=== PATIENT | male | born 1960 | race Caucasian/White ===

== ENCOUNTER 2019-07-16 10:25 | Observation (INO) ==
[2019-07-16] MEDS ORDERED: Isovue-370 500 ML BOTTLE IVP ONE (10:39)
[2019-07-16 11:10] LABS: Basophils % 0.4 %; Eosinophils # 0.4 K/mcL (0.0-0.6); Eosinophils % 3.6 %; Hematocrit 42.2 % (37.5-50.1); Hemoglobin 13.8 g/dL (12.9-16.9); Immature Granulocytes % 0.5 % (0-4); Lymphocytes # 1.8 K/mcL (0.6-4.6); Lymphocytes % 17.8 %; Mean Corpuscular HGB Conc 32.7 g/dL (31.6-35.5); Mean Corpuscular Hemoglobin 31.5 pg (28.0-33.3); Mean Corpuscular Volume 96.3 fL (83.0-100.0); Mean Platelet Volume 9.4 fL (9.4-12.4); Monocytes # 1.1 K/mcL (0.0-1.3); Monocytes % 10.5 %; Neutrophils # 6.8 K/mcL (1.6-8.9); Platelet Count 211 K/mcL (140-400); Red Blood Count 4.38 M/mcL (4.19-5.50); Segmented Neutrophils % 67.2 %; White Blood Count 10.1 K/mcL (4.3-11.1)
[2019-07-16] MEDS ORDERED: Tdap (Boostrix) Vaccine 0.5 ML SYRINGE IM ONE (11:24)
[2019-07-16 12:08] LABS: BUN/Creatinine Ratio 13 (6-26); Blood Urea Nitrogen 11 mg/dL (8-23); Calcium 9.2 mg/dL (8.6-10.3); Carbon Dioxide 23 mEq/L (23-29); Chloride 108 mEq/L (98-107); Glucose 120 mg/dL (70-105); Osmolality,Calculated 285 (280-300); Potassium 3.6 mEq/L (3.5-5.1); Sodium 137 mEq/L (136-145); eGFR For African Americans > 60 (> 60); eGFR For Non-African Americans > 60 (> 60)
[2019-07-16] MEDS ORDERED: Ondansetron 4 MG/2 ML VIAL IVP PRN (13:14)
[2019-07-16] MEDS ORDERED: Naloxone 0.4 MG/ML INJ IVP PRN (13:14)
[2019-07-16] MEDS ORDERED: Ketorolac 15 MG/ML VIAL IVP ONE (13:19)
[2019-07-16 14:01] LABS: C-Reactive Protein 7 mg/L (Less than 10)
[2019-07-16] MEDS: *HR* Heparin 5,000 UNIT/ML VIAL SQ SCH ×2 (14:50→21:15)
[2019-07-16] MEDS: Clindamycin 600 MG/50 ML 600 MG/50 ML IV.SOLN IVPB SCH ×2 (16:49→23:16)
[2019-07-16] MEDS: *HR* HYDROcodone/Acet 5/325 mg TABLET PO PRN (18:43)
[2019-07-17 03:58] LABS: Basophils % 0.6 %; Eosinophils # 0.4 K/mcL (0.0-0.6); Eosinophils % 6.2 %; Hematocrit 43.9 % (37.5-50.1); Hemoglobin 14.1 g/dL (12.9-16.9); Immature Granulocytes % 0.3 % (0-4); Lymphocytes # 2.2 K/mcL (0.6-4.6); Lymphocytes % 32.8 %; Mean Corpuscular HGB Conc 32.1 g/dL (31.6-35.5); Mean Corpuscular Volume 96.5 fL (83.0-100.0); Mean Platelet Volume 9.8 fL (9.4-12.4); Monocytes # 0.8 K/mcL (0.0-1.3); Monocytes % 11.6 %; Neutrophils # 3.3 K/mcL (1.6-8.9); Platelet Count 221 K/mcL (140-400); Red Blood Count 4.55 M/mcL (4.19-5.50); Red Cell Distribution Width 13.1 % (11.5-14.5); Segmented Neutrophils % 48.5 %; White Blood Count 6.8 K/mcL (4.3-11.1)
[2019-07-17 04:17] LABS: BUN/Creatinine Ratio 13 (6-26); Blood Urea Nitrogen 13 mg/dL (8-23); Calcium 9.1 mg/dL (8.6-10.3); Carbon Dioxide 25 mEq/L (23-29); Chloride 112 mEq/L (98-107); Glucose 103 mg/dL (70-105); Osmolality,Calculated 294 (280-300); Phosphorous 3.3 mg/dL (2.7-4.5); Potassium 3.8 mEq/L (3.5-5.1); Sodium 142 mEq/L (136-145); eGFR For African Americans > 60 (> 60); eGFR For Non-African Americans > 60 (> 60)
[2019-07-17 04:22] LABS: Estimated Average Glucose 114 mg/dl
[2019-07-17] MEDS: *HR* Heparin 5,000 UNIT/ML VIAL SQ SCH ×2 (05:06→21:40)
[2019-07-17] MEDS: Clindamycin 600 MG/50 ML 600 MG/50 ML IV.SOLN IVPB SCH (08:12)
[2019-07-17] MEDS: *HR* HYDROcodone/Acet 5/325 mg TABLET PO PRN ×2 (08:19→18:10)
[2019-07-17] MEDS ORDERED: *HR* Midazolam HCl 2 MG/2 ML VIAL ONE (13:50)
[2019-07-17] MEDS ORDERED: *HR* Propofol 200 MG/20 ML VIAL IVP ONE (13:50)
[2019-07-17] MEDS ORDERED: *HR* FentaNYL (PF) 100 MCG/2 ML VIAL ONE (13:50)
[2019-07-17] MEDS ORDERED: Bupivacaine/EPI 1:200k 0.5%PF 10 ML VIAL ONE (13:50)
[2019-07-17] MEDS ORDERED: Dexamethasone 4 MG/ML VIAL ONE (13:53)
[2019-07-17] MEDS ORDERED: Lidocaine -MPF 2% 2 ML VIAL ONE (13:53)
[2019-07-17] MEDS ORDERED: Ondansetron 4 MG/2 ML VIAL ONE (13:53)
[2019-07-17] MEDS ORDERED: *HR* Promethazine 25 MG/ML VIAL IVP PRN (14:13)
[2019-07-17] MEDS ORDERED: *HR* HYDROmorphone (PF) 1 MG/ML SYRINGE IVP PRN (14:13)
[2019-07-17] MEDS ORDERED: Famotidine 20 MG/2 ML VIAL IVP ONE ×2 (14:13→17:02)
[2019-07-17] MEDS ORDERED: Ondansetron 4 MG/2 ML VIAL IVP PRN ×2 (14:13→17:02)
[2019-07-17] MEDS ORDERED: *HR* Labetalol 20 MG/4 ML SYRINGE IVP PRN (14:13)
[2019-07-17] MEDS ORDERED: Famotidine 20 MG/2 ML VIAL ONE (14:18)
[2019-07-17] MEDS ORDERED: EPHEDrine 50 MG/ML VIAL ONE (14:39)
[2019-07-17] MEDS ORDERED: Ibuprofen 800 MG TABLET PO PRN (16:02)
[2019-07-17] MEDS ORDERED: Baclofen 10 MG TABLET PO PRN (16:02)
[2019-07-17] MEDS ORDERED: Fluticasone Propionate Nasal 50 MCG/SPRAY BOTTLE NS PRN (16:02)
[2019-07-17] MEDS ORDERED: Naloxone 0.4 MG/ML INJ IVP PRN (17:02)
[2019-07-17] MEDS ORDERED: Clindamycin 600 MG/50 ML 600 MG/50 ML IV.SOLN IVPB SCH (17:07)
[2019-07-17] MEDS ORDERED: Gabapentin 400 MG CAPSULE PO SCH (21:00)
[2019-07-18] MEDS: Clindamycin 600 MG/50 ML 600 MG/50 ML IV.SOLN IVPB SCH ×2 (00:12→07:54)
[2019-07-18] MEDS: *HR* HYDROcodone/Acet 5/325 mg TABLET PO PRN ×2 (00:44→07:55)
[2019-07-18] MEDS: *HR* Heparin 5,000 UNIT/ML VIAL SQ SCH (05:29)
[2019-07-18] MEDS ORDERED: Ibuprofen 800 MG TABLET PO PRN (07:20)
[2019-07-18] MEDS ORDERED: Fluticasone Propionate Nasal 50 MCG/SPRAY BOTTLE NS PRN (07:22)
[2019-07-18] MEDS ORDERED: Baclofen 10 MG TABLET PO PRN (07:22)
[2019-07-18] MEDS ORDERED: Enoxaparin Weight Dosing SQ SCH (08:09)
[2019-07-18] MEDS ORDERED: Topiramate 25 MG CAP.SPRINK PO SCH (09:00)
[2019-07-18] MEDS ORDERED: Topiramate 25 MG TABLET PO SCH (09:00)
[2019-07-18] MEDS ORDERED: Gabapentin 400 MG CAPSULE PO SCH (09:00)
[2019-07-18] MEDS ORDERED: Multivit/Ca/Min/Fe/FA 1 TAB TABLET PO SCH (09:00)
[2019-07-18] MEDS ORDERED: PARoxetine 30 MG TABLET PO SCH ×2 (09:00)
[2019-07-18] MEDS ORDERED: ARIPiprazole 10 MG TABLET PO SCH ×2 (09:00)
[2019-07-18 11:41] VITALS: BP 126/84
== END 2019-07-18 11:50 | disposition home or self-care (01) ==
LOC: EMEROOARM 10:25 → 3NENU 10:25 → SUATTDRO 13:32 → 3NENU 14:15
PROVIDERS: ADMIT Internal Medicine; ATTEND Internal Medicine